=== PATIENT | male | born 1950 | race Asian ===

== ENCOUNTER 2021-10-11 17:10 | Emergency (ER) | payer MEDICARE ==
[~2021-10-11] VITALS: Ht 170.2 cm; Wt 91.0 kg
[2021-10-11 17:19] VITALS: BP 141/83
== END 2021-10-11 22:15 | disposition left against medical advice (07) ==
LOC: ER 17:39
DX: Z53.21 Procedure and treatment not carried out due to patient leaving prior to being seen by health care provider (principal)